=== PATIENT | female | born 1970 | race Caucasian/White ===

== ENCOUNTER 2016-08-02 20:14 | Emergency (ER) | payer MEDICARE, OTHER | END 2016-08-02 22:26 | disposition left against medical advice (07) | LOC: ER 20:14 | DX: Z53.21 Procedure and treatment not carried out due to patient leaving prior to being seen by health care provider (principal) ==

== ENCOUNTER 2016-08-03 05:03 | Emergency (ER) | payer MEDICARE | END 2016-08-03 07:09 | disposition home or self-care (01) | LOC: ER 05:03 | DX: M79.605 Pain in left leg (principal); E11.9 Type 2 diabetes mellitus without complications; I10 Essential (primary) hypertension; F17.210 Nicotine dependence, cigarettes, uncomplicated; Z90.49 Acquired absence of other specified parts of digestive tract; Z79.82 Long term (current) use of aspirin; Z79.84 Long term (current) use of oral hypoglycemic drugs; Z79.899 Other long term (current) drug therapy | CPT/HCPCS: 36415 ==